=== PATIENT | female | born 1945 | race Caucasian/White ===

== ENCOUNTER 2024-10-30 12:03 | Emergency (ER) | payer MEDICARE, OTHER, SELFPAY ==
[2024-10-30 12:09] VITALS: BP 131/98
[2024-10-30 12:10] VITALS: BP 131/98
[2024-10-30 12:14] VITALS: BMI 28.9
[2024-10-30 12:15] LABS: Glucose - Point of Care 158 mg/dl (70-99)
[2024-10-30 12:27] LABS: % Basophils 0.3 % (0-2); % Eosinophils 1.1 % (0-6); % Immature Granulocytes 0.4 % (0-0.5); % Lymphocytes 9.6 % (20.5-51.1); % Monocytes 6.8 % (1.7-9.3); % Neutrophils 81.8 % (42.2-75.2); Absolute Eosinophils 0.1 10^3/uL (0-0.7); Absolute Lymphocytes 1.1 10^3/uL (1.2-3.4); Absolute Monocytes 0.8 10^3/uL (0.1-0.6); Absolute Neutrophils 9.3 10^3/uL (1.4-6.5); Hematocrit 27.7 % (37.0-47.0); Hemoglobin 8.3 g/dL (12.0-16.0); Mean Corpuscular Hgb 22.7 pg (27.0-31.0); Mean Corpuscular Volume 75.7 fL (81.0-99.0); Mean Platelet Volume 10.6 fL (7.4-10.4); Nucleated Red Blood Cells % 0 %; Platelet Count 321 10^3/uL (130-400); Red Blood Cell Count 3.66 10^6/uL (4.20-5.40); Red Cell Dist. Width 18.5 % (11.5-14.5); White Blood Cell Count 11.3 10^3/uL (4.8-10.8)
[2024-10-30 12:41] LABS: ALT (SGPT) 18 U/L (0-35); AST (SGOT) 25 U/L (14-36); Albumin 3.8 g/dl (3.5-5.0); Alkaline Phosphatase 56 U/L (38-126); Blood Urea Nitrogen 17 mg/dl (7-17); Calcium 9.5 mg/dl (8.4-10.2); Carbon Dioxide 28 mmol/L (22-30); Chloride 101 mmol/L (98-107); Estimated Creatinine Clearance 54 ml/min; Glucose 213 mg/dl (70-99); Potassium 5.1 mmol/L (3.5-5.1); Sodium 136 mmol/L (135-145); Total Bilirubin 0.5 mg/dl (0.2-1.3); Total Protein 6.1 g/dl (6.3-8.2); eGFR > 60.00
[2024-10-30 13:19] LABS: Glucose - Point of Care 172 mg/dl (70-99)
--- NOTE | 2024-10-30 13:49 | ED.GENMED ---
History of Present Illness
General
Chief Complaint: Blood Sugar Problem
Time Seen by Provider: 10/30/24 12:13
History of Present Illness
History of Present Illness:
79-year-old female presents the emergency department via EMS for evaluation of confusion and dizziness that began at home. She was found to be altered by her daughter. EMS reported a prehospital glucose of 43 and she was administered D10 infusion.
On arrival to the ER blood sugar was 153. Currently she feels fine and has no complaints. Patient is on Lantus at nighttime as well as daytime metformin and Januvia, does not have any mealtime insulin dosage. Her dosage of insulin has not
changed recently. She did not eat this morning but did eat dinner last night before going to bed.
Review of Systems
Review of Systems
Allergies reviewed?: Yes
All Other Systems: ROS reviewed and negative except as documented in HPI and ROS
Phy Exam
Physical Exam
Physical Exam:
GEN: Well appearing, NAD, WDWN
HEENT: Oral mucosa moist, no scleral icterus
Cardiac: Regular rate and rhythm, no murmurs
Lung: No respiratory distress, no tachypnea
MSK: No gross deformity or injuries
Skin: Good color, no pallor or jaundice, no rashes
Neuro: AO x3, moves all extremities freely
Psych: Calm, cooperative
Course
Orders/Labs/Results
Orders:
Orders
10/30/24 12:17
Complete Blood Count/With Diff Urgent
Comprehensive Metabolic Panel Urgent
Abnormal Lab Results
10/30/24 10/30/24 10/30/24
12:08 12:17 13:17
WBC 11.3 H 10^3/uL
(4.8-10.8)
RBC 3.66 L 10^6/uL
(4.20-5.40)
Hgb 8.3 L g/dL
(12.0-16.0)
Hct 27.7 L %
(37.0-47.0)
MCV 75.7 L fL
(81.0-99.0)
MCH 22.7 L pg
(27.0-31.0)
MCHC 30.0 L g/dL
(33.0-37.0)
RDW 18.5 H %
(11.5-14.5)
MPV 10.6 H fL
(7.4-10.4)
Absolute Neuts (auto) 9.3 H 10^3/uL
(1.4-6.5)
Absolute Lymphs (auto) 1.1 L 10^3/uL
(1.2-3.4)
Absolute Monos (auto) 0.8 H 10^3/uL
(0.1-0.6)
Neutrophils % 81.8 H %
(42.2-75.2)
Lymphocytes % 9.6 L %
(20.5-51.1)
Glucose 213 H mg/dl
(70-99)
Total Protein 6.1 L g/dl
(6.3-8.2)
POC Glucose 158 H mg/dl 172 H mg/dl
(70-99) (70-99)
10/30/24 12:17
10/30/24 12:17
Vital Signs
Initial and Last Documented VS:
Initial Vital Signs
Temp Pulse Resp BP Pulse Ox
98.1 F 63 14 131/98 96
10/30/24 12:10 10/30/24 12:10 10/30/24 12:10 10/30/24 12:10 10/30/24 12:10
Last Documented Vital Signs
Temp Pulse Resp BP Pulse Ox
98.1 F 63 14 131/98 96
10/30/24 12:10 10/30/24 12:10 10/30/24 12:10 10/30/24 12:10 10/30/24 12:10
MDM/Problems Addressed
MDM/Problems Addressed:
Patient patient was given food in the ED and glucose gradually trended up. I recommended she resume her nighttime dosage of antidiabetic medications but not take her missed morning doses of metformin or Januvia. Will prescribe a glucometer if she
does not have one available to her currently. Do not feel there is any indication to adjust insulin dosage based on this 1 off event.
*Critical Care Note
Total Time (30-74mins, 75-104mins- exclusive of procedures): Not Applicable
ED Attending Note
-
Portions of this chart may have been created with voice recognition software.� Occasional wrong word or��sound alike� substitutions may have occurred due to the inherent limitations of voice recognition software.
Discharge Plan
Departure
Patient Disposition: Home (Routine Discharge)
Date of Disposition: 10/30/24
Time of Disposition: 13:51
Patient with high blood pressure during this ER visit?: No
Discharge Problem:
Hypoglycemia
Instructions: Low blood sugar in people with diabetes
Prescriptions:
New
(DME) blood-glucose meter [Easy Plus II Blood Glucose Met] Misc
See Rx Instructions .Route Qty: 1 0RF
Rx Instructions:
As directed
(DME) Accutrend Glucose test strips Strip
See Rx Instructions .Route Qty: 50 0RF
Rx Instructions:
As directed
Referrals:
Chacho Calderon MD [Family Provider] -
Interventions
Interventions:
*Risk Screen - Suicide Last Done: 10/30/24 12:15
*General Assessment Last Done: 10/30/24 12:15
*Neglect/Abuse Screening Last Done: 10/30/24 12:15
Discharge Date and Time
Print Language: DANISH
[2024-10-30 14:02] VITALS: BP 145/58
[2024-10-30 14:16] VITALS: BP 145/58
== END 2024-10-30 14:26 | disposition home or self-care (01) ==
LOC: EMR 12:03
PROVIDERS: EMERGENCY PHYSICIAN Emergency Medicine; FAMILY PHYSICIAN Internal Medicine
DX: E16.2 Hypoglycemia, unspecified (principal)
CPT/HCPCS: 99283; 80053; 82962; 85025

== ENCOUNTER → 2024-12-03 14:37 | Outpatient (REF) | payer MEDICARE, OTHER, SELFPAY | LOC: PAVMRI 14:37 | PROVIDERS: ATTENDING PHYSICIAN Psychiatry & Neurology Neurology; FAMILY PHYSICIAN Internal Medicine | DX: G44.52 New daily persistent headache (NDPH) (principal) | CPT/HCPCS: 70551 ==